=== PATIENT | female | born 1985 | race Caucasian/White ===

== ENCOUNTER 2017-10-20 20:57 | Emergency (ER) | payer BC ==
[~2017-10-20] VITALS: Ht 170.2 cm; Wt 57.0 kg
[2017-10-20 21:16] VITALS: TEMP 37; Ht 170.2 cm; Wt 57.0 kg
[2017-10-20] MEDS ORDERED: NAPR-1169 PO (22:38)
[2017-10-20] MEDS ORDERED: IBUP-1428 PO (22:38)
[2017-10-20] MEDS ORDERED: AMOX500C3 PO (22:38)
--- NOTE | 2017-10-20 23:03 | EMERGENCY ROOM VISIT NOTE ---
ED Visit Note First contact with patient: 22:43 CHIEF COMPLAINT: Toothache HISTORY OF PRESENT ILLNESS: This is a 32-year-old female who presents to the emergency department with complaint of a progressive toothache for past 2 weeks. The patient believes it is coming from left upper molar. The pain is now steady and severe and radiates to the face. The patient has already seen her dentist, who told her to take amoxicillin for a few days, but to stop taking this if it was not improving her pain. She is planning to follow-up with her dentist this week, but has been having severe worsening pain over the past 2 days, and her dentist is not open tomorrow. She states the pain is constant, severe, throbbing and aching, worse with chewing or hot/cold exposure , 10/10. She has been taking Aleve, ibuprofen and Tylenol, and these have not relieved the pain. She denies facial swelling, difficulty swallowing, or fevers /chills. The patient denies any discharge from the mouth or bad taste. She is not diabetic, and is not a smoker. REVIEW OF SYSTEMS: A 6 system review of systems was completed with positives and pertinent negatives listed in the HPI. ALLERGIES: No known allergies MEDICATIONS: No medications PMH: No significant past medical or surgical history SOCIAL HISTORY: Lives at home. Denies tobacco, alcohol, recreational drug use PHYSICAL EXAM: Vitals are noted on the nurse's note and reviewed by myself. Vital signs stable, afebrile. GENERAL: Pleasant and cooperative, in no acute distress, but appears to be in pain, non-diaphoretic, well-developed well- nourished. Mouth: The right upper second molar is not carious or fractured, there is no gingival erythema, swelling, or tenderness surrounding the tooth. No evidence of discharge or signs of an abscess. The tooth itself is very tender to palpation/percussion. The remainder of the pharynx and tonsils are without erythema, edema, or exudate. The airway is patent. There is no facial swelling, cervical or submandibular lymphadenopathy. The patient appears uncomfortable and in pain. The patient has overall good dental hygiene. EARS: External auditory canals clear, tympanic membranes pearly khan without erythema or effusion bilaterally. ED COURSE: I examined the patient. Differential diagnosis includes dental pain , dental abscess, gingivitis, dental infection, dental fracture, hypersensitivity, among others. Patient is well appearing, afebrile, in no acute distress. She has tenderness to percussion of the tooth. There is no evidence of dental infection. I applied topical benzocaine for analgesia of the tooth, followed by application of temporary cement over the affected tooth. Patient reports improvement in her pain overall. The patient was encouraged to continue her regimen with Aleve and Tylenol, to avoid chewing on the left side of her mouth and to stick with lukewarm food/drink, and to schedule an appointment with her dentist as soon as possible for further management of her tooth. Patient was also given strict return precautions should her symptoms worsen in any way, she verbalized understanding. Patient was discharged home in stable condition and ambulatory. Current/Historical Medications Scheduled Amoxicillin (Amoxil), 500 MG PO Q8 Naproxen (Naprosyn), 500 MG PO BID Scheduled PRN Ibuprofen (Motrin), 800 MG PO Q8H PRN for Pain Allergies Coded Allergies: No Known Allergies (Unverified , 10/20/17) Vital Signs Date Time Temp Pulse Resp B/P (MAP) Pulse Ox O2 Delivery O2 Flow Rate FiO2 10/21/17 00:38 70 18 124/65 98 10/20/17 21:16 37.0 71 18 128/86 98 Room Air Departure Information Impression Primary Impression: Pain, dental Dispostion Home / Self-Care Condition GOOD Referrals No Doctor, Assigned (PCP) Patient Instructions ED Tooth Pain, Formerly [facility], [facility] Additional Instructions You have been treated in the Emergency Department for Dental Pain. Avoid chewing on the left side of your mouth. Keeping beverages lukewarm and consuming soft foods can decrease your pain. Warm compresses over the affected area may offer some relief. For pain control, you can use the following [id number] medicines (if >12 yo): - Extra strength (500mg/tab) Tylenol (acetaminophen) 2 tabs every 8 hours as needed. Do not exceed 6 tablets in a 24 hour period. Avoid taking more than 3 grams (3000 mg) of Tylenol per day. This includes any other sources of acetaminophen you may take on a regular basis. - Naproxen 500mg tablet every 12 hours as needed. Do not take more than 2 tablets in 24 hours. You MUST seek evaluation of your dental pain by a dentist following your visit to the Emergency Department. The Emergency Department is not capable of treating dental issues long-term. You should call your dentist as soon as possible to make an appointment for evaluation of your dental pain. Return to the emergency department if you develop the following symptoms despite treatment course outlined above: fevers > 101.5, severe worsening pain, increased redness, swelling, or purulent discharge. Work Instructions Return To Work: 2 days
[2017-10-21 00:38] VITALS: BP 124/65; PULSE 70; O2SAT 98
== END 2017-10-21 00:50 | disposition home or self-care (01) ==
LOC: C.EDB 20:59 → C.EDD 10-21 00:50
DX: K08.89 Other specified disorders of teeth and supporting structures (principal)

== ENCOUNTER 2025-01-24 20:26 | Inpatient (IN) ==
--- NOTE | 2025-01-24 20:50 | Emergency Department Note ---
Impression & Plan Cellulitis, Lymphangitis ED Provider Note CHIEF COMPLAINT: Wrist pain HISTORY OF PRESENTING ILLNESS: The patient is a pleasant 39-year-old female who arrives to the emergency department for evaluation of right wrist pain. The patient reports she was at work, when she noted swelling to the right wrist. She states since that time she has had significant pain, and increased swelling. She states the swelling began approximately 3 hours prior to arrival to the emergency department. She states no fever, and no injury. She reports she is concerned for a possible bite, however is unaware of what may have bitten her. She states she has noticed some streaking up the forearm, from the area of redness to the elbow. REVIEW OF SYSTEMS: See HPI for pertinent positives and pertinent negatives. ALLERGIES: See below MEDICATIONS: See below PAST MEDICAL HISTORY: See below PHYSICAL EXAM: VITALS: Vitals are noted on the nurse's note and reviewed by myself. Vital signs stable. GENERAL: 39-year-old female, in no acute distress, nondiaphoretic, well- developed well-nourished. SKIN: Erythema, edema to the medial aspect of the right breast, with a central raised area. Lymphangitic streaking noted to the medial forearm from the area of cellulitis to the antecubital fossa. MUSCULOSKELETAL: Full range of motion of the right wrist. Radial pulse intact. Web Graphic Designer strength 5/5. Sensation intact to dull and sharp. NEURO: Patient was alert and oriented to person place and time. No focal neurological deficits. DIFFERENTIAL DIAGNOSIS: Cellulitis, abscess, MRSA infection, DVT, necrotizing fasciitis, dermatitis, drug eruption, allergic reaction, as well as other pathologies. ED COURSE AND MEDICAL DECISION MAKING: MEDICATIONS GIVEN: 2 g IV Rocephin, 400 mg IV daptomycin. INTERPRETATION OF LABS: I interpreted the labs with full lab results as below in the lab section of this note. Pertinent lab results discussed in the MDM section below. INTERPRETATION OF IMAGING: Imaging studies were interpreted by myself and read by radiology as per the imaging section of this note. MDM SUMMARY: The patient is a pleasant, 39-year-old female who arrives to the emergency department for evaluation of the above-stated complaint. X-ray imaging of the wrist was obtained which per my interpretation shows no acute finding. A saline lock was established, CBC, CMP, Lyme were obtained. CBC shows no leukocytosis, no anemia. CMP is unremarkable. Lyme negative. Due to the patient's lymphangitic streaking, IV Rocephin was administered. There is concern for MRSA, therefore IV daptomycin will be added. The area was cleansed, with alcohol prep pads, and gently unroofed to obtain culture. The patient tolerated well. Culture will be used to further identify the causative agent. I do believe the patient requires hospital admission due to the rapidly progressing infection. I spoke with case management who facilitated contact with the [facility] hospitalist group. Dr. Petit, agreed to accept the patient for admission. Please refer to his documentation for further patient workup and care. DIAGNOSIS: Cellulitis, lymphangitis The chart was completed utilizing [employer] voice recognition software. Grammatical errors, random word insertions, pronoun errors, and incomplete sentences are an occasional consequence of this system due to software limitations, ambient noise, and hardware issues. Any formal questions or concerns about the content, text, or information contained within the body of this dictation should be directly addressed to the provider for clarification. Attending Attestation: Katiana Garcia MD independently saw and evaluated this patient and agree with history and physical is otherwise documented by the advanced practitioner. See their note for full details. Past Med/Surg History Problem List (Updated 01/25/25 @ 08:31 by Ruben Romero MD) Lymphangitis (Acute) Cellulitis (Acute) Infection of wrist Social History Smoking Status: Never smoker Second Hand Exposure: No; Do You Dip or Chew Tobacco: No; Hx Alcohol Use: No Hx Substance Use: No Preferred Language: Irish Communication Ability: Effective Wildlife Science Professor Required: No Beliefs That Will Affect Care: None Current Living Situation: Spouse Feels Safe at Home: Yes Assistive Devices: None Allergies Allergies Allergy/AdvReac Type Severity Reaction Status Date / Time No Known Allergies Allergy Unverified 10/20/17 21:16 Home Meds Home Medications Medication Instructions Recorded Confirmed levothyroxine 75 mcg tablet 75 mcg PO DAILY 01/24/25 01/24/25 Previous Rx's Medication Instructions Recorded amoxicillin 500 mg-potassium 1 tab PO BID 7 days #14 tabs 01/25/25 clavulanate 125 mg tablet (Augmentin) doxycycline hyclate 100 mg capsule 100 mg PO BID 7 days #14 caps 01/25/25 Results & Data (ED) Vital Signs Vital Signs - 24 hr 01/24/25 20:29 01/24/25 23:00 Temperature 36.7 C Temperature Source Temporal Artery Scan Pulse Rate 75 Pulse Rate [Finger] 70 Pulse Rhythm Regular Pulse Strength Normal Respiratory Rate 17 18 Respiratory Effort / Characteristics Non-Labored Spontaneous Non-Labored Spontaneous Respiratory Depth Normal Normal Respiratory Pattern Regular Regular Blood Pressure [Left Arm] 118/68 Blood Pressure Mean [Left Arm] 84 Blood Pressure Position Sitting Blood Pressure Position [Left Arm] Sitting Pulse Oximetry 100 98 Oxygen Delivery Method Room Air Room Air Sepsis Recent Fever Within 48 Hours No Sepsis New/Unexplained Change in Mental Status N/A Sepsis Action Taken by Nursing No Action Required Home Medications Current Medication List: was personally reviewed by me Laboratory Data Attestation: I reviewed the patient's lab results. 01/25/25 05:39 01/25/25 05:39 Lab Results 01/24/25 Range/Units 21:41 WBC 8.95 (4.8-10.8) K/ul RBC 4.46 (4.20-5.40) M/uL Hgb 13.8 (12.0-16.0) g/dl Hct 40.2 (37.0-47.0) % MCV 90.1 (80.0-100.0) fL MCH 30.9 (25.0-34.0) pg MCHC 34.3 (32.0-36.0) g/dL RDW Std Deviation 41.4 (36.4-46.3) fL RDW Coeff of Jose Juan 12.5 (11.5-14.5) % Plt Count 249 (130-400) K/uL MPV 10.3 (9.4-12.4) fL Immature Gran % (Auto) 0.2 % Neut % (Auto) 73.3 % Lymph % (Auto) 19.6 % [place] % (Auto) 5.4 % Eos % (Auto) 1.2 % Baso % (Auto) 0.3 % Neut # (Auto) 6.56 H (1.40-6.50) K/uL Lymph # (Auto) 1.75 (1.20-3.40) K/uL [place] # (Auto) 0.48 (0.11-0.59) K/uL Eos # (Auto) 0.11 (0.00-0.50) K/uL Baso # (Auto) 0.03 (0.00-0.20) K/uL Immature Gran # (Auto) 0.02 (0.01-0.20) K/uL Sodium 137 (136-145) mmol/L Potassium 3.4 L (3.5-5.1) mmol/L Chloride 105 (98-107) mmol/L Carbon Dioxide 28 (21-32) mmol/L Anion Gap 4 (3-11) BUN 12 (6-23) mg/dl Creatinine 0.79 (0.6-1.2) mg/dl Est Cr Clr Drug Dosing 86.6 ml/min eGFR 97.52 BUN/Creatinine Ratio 15.2 (10-20) Glucose 76 (70-99(Fasting)) mg/dl Calcium 9.2 (8.6-10.3) mg/dl Total Bilirubin 0.6 (0.2-1.0) mg/dl AST 16 (13-39) U/L ALT 11 (7-52) U/L Alkaline Phosphatase 39 (34-104) U/L Total Protein 7.4 (6.0-8.3) gm/dl Albumin 3.9 (3.4-5.0) gm/dl Globulin 3.5 (2.5-4.0) gm/dl Albumin/Globulin Ratio 1.1 (0.9-2) Lyme Disease Screen Negative (Negative) Administered Medications Discontinued Medications Acetaminophen (Acetaminophen 325 Mg Tab) 650 mg PO Q4H PRN PRN Reason: pain/fever Stop: 02/24/25 01:14 Last Admin: 01/25/25 08:59 Dose: 650 mg Documented By: CRISTIANA Ceftriaxone Sodium (Rocephin) 2,000 mg in 50 mls @ 100 mls/hr IV NOW STA Stop: 01/24/25 21:58 Last Infusion: 01/24/25 22:30 Dose: Infused Documented By: Admin: 01/24/25 21:50 Dose: 100 mls/hr Documented By: BRUCE Daptomycin 400 mg/ Syringe 8 mls @ 4 mls/min IV Q24H LEO; Protocol Stop: 01/26/25 22:59 Last Admin: 01/24/25 23:00 Dose: 4 mls/min Documented By: BRUCE Sodium Chloride (Nss) 1,000 mls @ 100 mls/hr IV .Q10H LEO Stop: 01/28/25 01:14 Last Admin: 01/25/25 12:01 Dose: Not Given Documented By: Infusion: 01/25/25 11:56 Dose: Infused Documented By: Admin: 01/25/25 01:31 Dose: 100 mls/hr Documented By: CATRINA Levothyroxine Sodium (Levothyroxine Sodium 75 Mcg Tablet) 75 mcg PO DAILYBB LEO Stop: 02/24/25 06:29 Last Admin: 01/25/25 05:39 Dose: 75 mcg Documented By: CATRINA Potassium Chloride (Potassium Chloride Crtab 20 Meq Tabcr) 20 meq PO NOW STA Stop: 01/24/25 23:51 Last Admin: 01/24/25 23:57 Dose: 20 meq Documented By: AN Imaging Data Attestation: I personally reviewed and interpreted this imaging study as follows: Radiologist's Impression: Wrist X-Ray 01/24/25 20:50 Exam(s): XR RIGHT WRIST, 3+ views EXAM: XR Right Wrist Complete, 3 or More Views CLINICAL HISTORY: pain. TECHNIQUE: Frontal, lateral and oblique views of the right wrist. COMPARISON: No relevant prior studies available. FINDINGS: Bones/joints: No significant degenerative changes. No acute fracture. No dislocation. Soft tissues: No significant overlying acute traumatic soft tissue abnormality. No radiopaque foreign body. IMPRESSION: No acute findings or significant degenerative changes involving the right wrist. Electronically signed by: John Jaquez MD 01/24/25 21:57 PM Discharge Plan Visit Data Chief Complaint: Wrist Pain Stated Complaint: RIGHT WRIST SWELLING, REDNESS, PAIN ED Provider: Leo Garcia ED Midlevel Provider: Edita Horne Discharge Problem: Cellulitis, Lymphangitis Patient Disposition: Admitted As Inpatient Condition: Good Discharge Instructions Interventions: ED Discharge Assessment Last Done: 01/25/25 00:23 Discharge Problem: Cellulitis Qualifiers: Site of cellulitis: extremity Site of cellulitis of extremity: upper extremity Laterality: right Qualified Code(s): L03.113 - Cellulitis of right upper limb
--- NOTE | 2025-01-24 21:58 | XRay Report ---
Exam(s): XR RIGHT WRIST, 3+ views EXAM: XR Right Wrist Complete, 3 or More Views CLINICAL HISTORY: pain. TECHNIQUE: Frontal, lateral and oblique views of the right wrist. COMPARISON: No relevant prior studies available. FINDINGS: Bones/joints: No significant degenerative changes. No acute fracture. No dislocation. Soft tissues: No significant overlying acute traumatic soft tissue abnormality. No radiopaque foreign body. IMPRESSION: No acute findings or significant degenerative changes involving the right wrist. Electronically signed by: John Jaquez MD 01/24/25 21:57 PM
[2025-01-24 22:07] LABS: Basophils # (auto) 0.03 K/uL (0.00-0.20); Basophils % (auto) 0.3 %; Eosinophils # (auto) 0.11 K/uL (0.00-0.50); Eosinophils % (auto) 1.2 %; Hematocrit (blood only) 40.2 % (37.0-47.0); Hemoglobin 13.8 g/dl (12.0-16.0); Immature Granulocytes # (auto) 0.02 K/uL (0.01-0.20); Immature Granulocytes % (auto) 0.2 %; Lymphocytes # (auto) 1.75 K/uL (1.20-3.40); Lymphocytes % (auto) 19.6 %; Mean Corpuscular Hemoglobin 30.9 pg (25.0-34.0); Mean Corpuscular Hgb Conc 34.3 g/dL (32.0-36.0); Mean Corpuscular Volume 90.1 fL (80.0-100.0); Mean Platelet Volume 10.3 fL (9.4-12.4); Monocytes # (auto) 0.48 K/uL (0.11-0.59); Monocytes % (auto) 5.4 %; Neutrophils # (auto) 6.56 K/uL (1.40-6.50); Neutrophils % (auto) 73.3 %; Platelet Count 249 K/uL (130-400); RDW Coefficient of Variation 12.5 % (11.5-14.5); RDW Standard Deviation 41.4 fL (36.4-46.3); Red Blood Count 4.46 M/uL (4.20-5.40); White Blood Count 8.95 K/ul (4.8-10.8)
[2025-01-24 22:13] LABS: Albumin Globulin Ratio 1.1 (0.9-2); Albumin Level 3.9 gm/dl (3.4-5.0); BUN Creatinine Ratio 15.2 (10-20); Bilirubin,Total 0.6 mg/dl (0.2-1.0); Calcium 9.2 mg/dl (8.6-10.3); Creatinine Clr Calc Pharmacy 86.6 ml/min; Globulin 3.5 gm/dl (2.5-4.0); Potassium 3.4 mmol/L (3.5-5.1); Total Protein 7.4 gm/dl (6.0-8.3)
--- NOTE | 2025-01-24 23:49 | History & Physical Report ---
Date of Service January 24, 2025 Assessment & Plan (1) Infection of wrist: Plan: 39-year-old female with past medical history significant for subclinical hypothyroidism presents with infection just below right wrist medial aspect . She developed redness and bump in that area today. Also erythematous streaking going up into the forearm. Denies any fevers. Denies any chest pain or shortness of breath. Earlier had some sore throat and cough but that resolved. No nausea. No abdominal pain. Resting comfortably and hemodynamics okay. Infection of the right wrist Possible abscess received empiric Rocephin and Dapto in ER which will continued N.p.o., IV fluids Ortho consult in a.m. Hypothyroidism Synthyroid DVT prophylaxis SCDs Disposition Medical floor Full code. History of Present Illness Chief Complaint: 39-year-old female with past medical history significant for subclinical hypothyroidism presents with infection just below right wrist medial aspect . She developed redness and bump in that area today. Also erythematous streaking going up into the forearm. Denies any fevers. Denies any chest pain or shortness of breath. Earlier had some sore throat and cough but that resolved. No nausea. No abdominal pain. Resting comfortably and hemodynamics okay. Past medical history.. As mentioned above. Past surgical history. Left knee arthroscopy. Repair of nasal fracture Social history. . No smoking. No alcohol use. No drug use. Family history. Father had [place] at age 57. Mother has hypertension. Primary Care Provider: Cynthia Chirinos MD Allergies Allergy/AdvReac Type Severity Reaction Status Date / Time No Known Allergies Allergy Unverified 10/20/17 21:16 Home Medications Medication Instructions Recorded Confirmed Type levothyroxine 75 mcg tablet 75 mcg PO DAILY 01/24/25 01/24/25 History Past Med/Surg History Problem List (Updated 01/25/25 @ 08:31 by Ruben Romero MD) Lymphangitis (Acute) Cellulitis (Acute) Infection of wrist Social History Smoking Status: Never smoker Second Hand Exposure: No; Do You Dip or Chew Tobacco: No; Tobacco Cessation Education Requested by Patient: No Hx Alcohol Use: No Hx Substance Use: No Preferred Language: Fijian Communication Ability: Effective Senior Computer Specialist Required: No Beliefs That Will Affect Care: None Current Living Situation: Spouse Other Information That Helps Us Care for You: No Feels Safe at Home: Yes Safety Concerns: Feels Safe At This Time Assistive Devices: None Review of Systems Review of Systems: All systems reviewed & are unremarkable except as noted in HPI & below Physical Exam Physical Exam: General- Not in distress Head- atraumatic Eyes- PERRL. ENT- oropharynx clear Neck- supple, no JVD. Lungs- clear to auscultation no wheezing or crackles Heart- regular rate and rhythm; no murmur, no gallop. Abdomen- normal bowel sounds, soft, nontender, no distension Extremities- no pretibial edema, Neuro- alert, oriented PERRL, no facial palsy; no dysarthria; moves extremities. Skin- erythema and bump seen around right wrist medial aspect with mild erythematous streaks going up in the forearm Results & Data Results & Data Vital Signs (Past 12 Hours) Vital Signs Temp Pulse Pulse Resp BP Pulse Ox O2 Del Method 01/24/25 23:00 70 18 118/68 98 Room Air 01/24/25 20:29 36.7 C 75 17 100 Room Air Diagnostic Findings Laboratory Results WBC 8.95 K/ul (4.8-10.8) 01/24/25 21:41 RBC 4.46 M/uL (4.20-5.40) 01/24/25 21:41 Hgb 13.8 g/dl (12.0-16.0) 01/24/25 21:41 Hct 40.2 % (37.0-47.0) 01/24/25 21:41 MCV 90.1 fL (80.0-100.0) 01/24/25 21:41 MCH 30.9 pg (25.0-34.0) 01/24/25 21:41 MCHC 34.3 g/dL (32.0-36.0) 01/24/25 21:41 RDW Std Deviation 41.4 fL (36.4-46.3) 01/24/25 21:41 RDW Coeff of Jose Juan 12.5 % (11.5-14.5) 01/24/25 21:41 Plt Count 249 K/uL (130-400) 01/24/25 21:41 MPV 10.3 fL (9.4-12.4) 01/24/25 21:41 Immature Gran % (Auto) 0.2 % 01/24/25 21: Neut % (Auto) 73.3 % 01/24/25 21: Lymph % (Auto) 19.6 % 01/24/25 21: [place] % (Auto) 5.4 % 01/24/25 21: Eos % (Auto) 1.2 % 01/24/25 21: Baso % (Auto) 0.3 % 01/24/25: Neut # (Auto) 6.56 K/uL (1.40-6.50) H 01/24/25: Lymph # (Auto) 1.75 K/uL (1.20-3.40) 01/24/25: [place] # (Auto) 0.48 K/uL (0.11-0.59) 01/24/25: Eos # (Auto) 0.11 K/uL (0.00-0.50) 01/24/25: Baso # (Auto) 0.03 K/uL (0.00-0.20) 01/24/25 21: Immature Gran # (Auto) 0.02 K/uL (0.01-0.20) 01/24/25 21:41 Sodium 137 mmol/L (136-145) 01/24/25: Potassium 3.4 mmol/L (3.5-5.1) L 01/24/25: Chloride 105 mmol/L (98-107) 01/24/25: Carbon Dioxide 28 mmol/L (21-32) 01/24/25:41 Anion Gap 4 (3-11) 01/24/25 21:41 BUN 12 mg/dl (6-23) 01/24/25 21: Creatinine 0.79 mg/dl (0.6-1.2) 01/24/25: Est Cr Clr Drug Dosing 86.6 ml/min 01/24/25 21:41 eGFR 97.52 01/24/25 21:41 BUN/Creatinine Ratio 15.2 (10-20) 01/24/25 21: Glucose 76 mg/dl (70-99(Fasting)) 01/24/25 21: Calcium 9.2 mg/dl (8.6-10.3) 01/24/25 21:41 Total Bilirubin 0.6 mg/dl (0.2-1.0) 01/24/25 21:41 AST 16 U/L (13-39) 01/24/25 21:41 ALT 11 U/L (7-52) 01/24/25 21:41 Alkaline Phosphatase 39 U/L (34-104) 01/24/25 21:41 Total Protein 7.4 gm/dl (6.0-8.3) 01/24/25 21:41 Albumin 3.9 gm/dl (3.4-5.0) 01/24/25 21:41 Globulin 3.5 gm/dl (2.5-4.0) 01/24/25 21:41 Albumin/Globulin Ratio 1.1 (0.9-2) 01/24/25 21:41 Lyme Disease Screen Negative (Negative) 01/24/25 21:41 Impressions Wrist X-Ray 01/24/25 20:50 Exam(s): XR RIGHT WRIST, 3+ views EXAM: XR Right Wrist Complete, 3 or More Views CLINICAL HISTORY: pain. TECHNIQUE: Frontal, lateral and oblique views of the right wrist. COMPARISON: No relevant prior studies available. FINDINGS: Bones/joints: No significant degenerative changes. No acute fracture. No dislocation. Soft tissues: No significant overlying acute traumatic soft tissue abnormality. No radiopaque foreign body. IMPRESSION: No acute findings or significant degenerative changes involving the right wrist. Electronically signed by: John Jaquez MD 01/24/25 21:57 PM Code Status & VTE Plan VTE Prophylaxis Plan VTE Prophylaxis will be ordered: Yes
[2025-01-25 06:11] LABS: Basophils # (auto) 0.02 K/uL (0.00-0.20); Basophils % (auto) 0.2 %; Eosinophils # (auto) 0.19 K/uL (0.00-0.50); Eosinophils % (auto) 2.3 %; Hematocrit (blood only) 37.6 % (37.0-47.0); Hemoglobin 12.9 g/dl (12.0-16.0); Immature Granulocytes # (auto) 0.02 K/uL (0.01-0.20); Immature Granulocytes % (auto) 0.2 %; Lymphocytes % (auto) 23.3 %; Mean Corpuscular Hemoglobin 31.1 pg (25.0-34.0); Mean Corpuscular Hgb Conc 34.3 g/dL (32.0-36.0); Mean Corpuscular Volume 90.6 fL (80.0-100.0); Mean Platelet Volume 10.3 fL (9.4-12.4); Monocytes # (auto) 0.58 K/uL (0.11-0.59); Monocytes % (auto) 7.1 %; Neutrophils # (auto) 5.46 K/uL (1.40-6.50); Neutrophils % (auto) 66.9 %; Platelet Count 234 K/uL (130-400); RDW Coefficient of Variation 12.7 % (11.5-14.5); RDW Standard Deviation 42.5 fL (36.4-46.3); Red Blood Count 4.15 M/uL (4.20-5.40); White Blood Count 8.17 K/ul (4.8-10.8)
[2025-01-25 06:29] LABS: BUN Creatinine Ratio 21.4 (10-20); Calcium 8.3 mg/dl (8.6-10.3); Creatinine Clr Calc Pharmacy 97.1 ml/min; Magnesium 1.8 mg/dl (1.7-2.4)
[2025-01-25 07:37] VITALS: BP 110/72; PULSE 72; RESP 18; TEMP 98.8; O2SAT 98
--- NOTE | 2025-01-25 08:32 | Orthopedic Consultation ---
Date of Service January 25, 2025 Assessment & Plan (1) Cellulitis: (2) Lymphangitis: Plan 39-year-old otherwise healthy female with a localized area of cellulitis and lymphangitis. No definitive exam for abscess and timeline is extremely short for that development. No indication for surgical intervention. Recommend treatment for cellulitis. Contact with orthopedics if there is worsening in her clinical condition. History of Present Illness Reason for Consultation: Right wrist spontaneous swelling Requesting Physician: . Attending Physician: Daniel Tse MD 39-year-old female admitted for presumed cellulitis with possible abscess overnight. She reports she is at work in [place] jail when she developed sudden onset discomfort on the ulnar side of her wrist. Developed some localized swelling that seem to spread with redness along the ulnar side of her forearm. She denies any previous history of this. She cannot recall any insect bites. Does not feel much better since starting antibiotics but it is early. Allergies Allergy/AdvReac Type Severity Reaction Status Date / Time No Known Allergies Allergy Unverified 10/20/17 21:16 Home Medications Medication Instructions Recorded Confirmed Type levothyroxine 75 mcg tablet 75 mcg PO DAILY 01/24/25 01/24/25 History Past Med/Surg History Problem List (Updated 01/25/25 @ 08:31 by Ruben Romero MD) Lymphangitis (Acute) Cellulitis (Acute) Infection of wrist Social History Smoking Status: Never smoker Second Hand Exposure: No; Do You Dip or Chew Tobacco: No; Tobacco Cessation Education Requested by Patient: No Hx Alcohol Use: No Hx Substance Use: No Preferred Language: Belarusian Communication Ability: Effective 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 Physical Exam Right wrist: Quarter size epidermal lysis area with skin edema. Questionable blot ability. Some erythema surrounds this area of swelling. Some epidermal lysis and blistering that she explained was from the other doctors unroofing for culture. Full active range of motion of the wrist digits and elbow. Neurova scular intact Constitutional well developed and well nourished; no acute distress and not intoxicated appearing Respiratory normal respiratory effort; no respiratory distress Cardiovascular Extremities: normal capillary refill; no edema Skin no rashes, warm and dry Psychiatric A+Ox3, euthymic affect Results & Data Results & Data Laboratory Results Laboratory Tests 01/24/25 01/24/25 01/25/25 21:41 21:41 05:39 WBC 8.95 8.17 Neut # (Auto) 6.56 H Lyme Disease Screen Negative 01/25/25 05:39 WBC Neut # (Auto) 5.46 Lyme Disease Screen H & H 01/24/25 01/25/25 Range/Units 21:41 05:39 Hgb 13.8 12.9 (12.0-16.0) g/dl Hct 40.2 37.6 (37.0-47.0) % Diagnostic Findings Right wrist radiographs are nondiagnostic and without acute findings PG Care Time/CCT Total # of Minutes Spent Total Time Spent with Patient: Total time spent is greater than 50% in coordination of care (as documented) at patient's floor/unit and/or counseling patient: Coding Level of Care Code 45061 IN/OBS CONSULT LVL 3,45M Diagnoses Cellulitis of right upper extremity L03.113 Site of cellulitis: extremity Site of cellulitis of extremity: upper extremity Laterality: right Lymphangitis I89.1 (1) Cellulitis Site of cellulitis: extremity Site of cellulitis of extremity: upper extremity Laterality: right Qualified Code(s): L03.113 - Cellulitis of right upper limb
--- NOTE | 2025-01-25 13:55 | Discharge Summary ---
Discharge Summary Date of Service January 25, 2025 Principal Dx & Hospital Course #1 = Principal Diagnosis (1) Infection of wrist: 39-year-old female with past medical history significant for subclinical hypothyroidism presents with infection just below right wrist medial aspect . She developed redness and bump in that area today. Also erythematous streaking going up into the forearm. Denies any fevers. Denies any chest pain or shortness of breath. Earlier had some sore throat and cough but that resolved. No nausea. No abdominal pain. Resting comfortably and hemodynamics okay. Infection of the right wrist Possible abscess received empiric Rocephin and Dapto in ER which will continued N.p.o., IV fluids Ortho consult in a.m. Hypothyroidism Synthyroid DVT prophylaxis SCDs Disposition Medical floor Full code. Notes For Next Care Provider 39-year-old female with past medical history significant for subclinical hypothyroidism presents with infection just below right wrist medial aspect. On medicine, on abx with improvement. ortho consulted, recommended abx treatment of cellulitis. on 01/25/2025 patient medically stable for discharge home with PO abx. Medication Changes From Visit -see below Discharge Exam Gen: A&O 3 NAD HEENT: NCAT, EOMI, not icteric. External ears normal. No rhinorrhea. Moist mucous membranes. Neck: Supple, full range of motion, no observable masses, No meningeal sign. Lungs: No Respiratory distress. CV: RRR, no edema. Abdomen: Soft, nondistended, No rebound tenderness. MSK: No joint swelling, no redness. noted right wrist erythema with central scabbing, per patient improved from prior Skin: No rashes, petechiae, lesions. Neuro: Normal Gait, Grossly intact. Psych: Appropriate for situation. Updated Medication List Medication Instructions Recorded Confirmed Type levothyroxine 75 mcg tablet 75 mcg PO DAILY 01/24/25 01/24/25 History amoxicillin 500 mg-potassium 1 tab PO BID 7 days #14 tabs 01/25/25 Rx clavulanate 125 mg tablet (Augmentin) doxycycline hyclate 100 mg capsule 100 mg PO BID 7 days #14 caps 01/25/25 Rx Hospital Stay Data Consultations 01/24/25 23:06 ED Decision to Admit Stat 01/25/25 08:00 Consult Orthopedic Surgery Routine Pending Results Patient Have Any Pending Studies at Discharge: No Discharge Instructions Given to Patient (Per Discharging Provider) 1. Follow up with PCP. 2. Finish course of abx. Total Time Total Time Spent Total Time Spent (In Minutes): I spent a total of 35 minutes in direct patient care, including [id number] time with the patient and/or family, reviewing medical records, ordering and reviewing diagnostic tests, and coordinating care with other healthcare providers. This time includes: history taking, physical examination, medical decision making, counseling, ECG interpretation, imaging interpretation, lab interpretation, orders, and education, excluding time spent in the performance o f separately billed services.
== END 2025-01-25 13:34 | disposition home or self-care (01) ==
LOC: ED 20:26 → 3N 23:40